=== PATIENT | female | born 2000 | race American Indian/Alaskan Native ===

== ENCOUNTER 2020-03-20 01:44 | Emergency (ER) | payer SELFPAY ==
[2020-03-20 02:40] VITALS: BP 110/68
[2020-03-20] MEDS ORDERED: HYDROcodone/ACETAMINOPHEN 5-325 MG TAB PO ONE (06:02)
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
[2020-03-20] MEDS ORDERED: ACETAMINOPHEN 325 MG TAB PO ONE (06:31)
[2020-03-20] MEDS ORDERED: IBUPROFEN 600 MG TAB PO ONE ×2 (06:31→06:34)
[2020-03-20] MEDS ORDERED: ACETAMINOPHEN 325 MG TAB ONE (06:32)
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
== END 2020-03-20 06:45 | disposition home or self-care (01) ==
LOC: ED 01:44
DX: R68.84 Jaw pain (principal); Y04.2XXA Assault by strike against or bumped into by another person, initial encounter; Y93.89 Activity, other specified; Y92.89 Other specified places as the place of occurrence of the external cause; Y99.8 Other external cause status
CPT/HCPCS: 70140; 99283

== ENCOUNTER 2021-04-08 06:32 | Outpatient (CLI) | payer MEDICAID ==
[2021-04-08 07:16] VITALS: BP 135/87
[2021-04-08] MEDS ORDERED: LACTATED RINGERS 500 ML IV ONE (08:28)
[2021-04-08 09:10] LABS: Bacteria,Urine 1+ /HPF (Negative); Bilirubin,Urine NEG (Negative); Blood,Urine MOD (Negative); Color,Urine Straw (Yellow); Mucus,Urine FEW /HPF; Protein,Urine <15 mg/dL mg/dL (Negative); Urobilinogen,Urine < 2.0 mg/dL (<2.0)
== END 2021-04-08 10:55 | disposition home or self-care (01) ==
LOC: APU 06:32 → TRG 06:32 → APU 06:40 → TRG 10:55
PROVIDERS: ATTEND Obstetrics & Gynecology Gynecology
DX: O62.9 Abnormality of forces of labor, unspecified (principal); Z3A.32 32 weeks gestation of pregnancy; Z87.891 Personal history of nicotine dependence
CPT/HCPCS: 59025; 81001; 87076; 87086; 87186; J7120; 96360; 96365